=== PATIENT | male | born 1995 | race Caucasian/White ===

== ENCOUNTER 2022-09-24 09:19 | Outpatient (CLI) | payer BC, SELFPAY ==
[2022-09-24 09:57] LABS: Hemoglobin A1C* 5.3 % (0-5.6)
[2022-09-24 14:16] LABS: Albumin* 4.6 g/dL (3.3-5.0); Chloride* 107 mmol/L (96-114); Potassium* 4.4 mmol/L (3.6-5.1); Sodium* 141 mmol/L (135-149)
[2022-09-24 14:18] LABS: Carbon Dioxide* 26 mmol/L (20-32); Cholesterol* 159 mg/dL (90-199); Creatinine* 0.6 mg/dL (0.5-1.5); Estimated Glomerular Filt Rate 137 ml/min
[2022-09-24 14:19] LABS: Alanine Aminotransferase* 34 U/L (4-50); Alkaline Phosphatase* 90 U/L (40-150); Aspartate Amino Transferase* 29 U/L (12-35); Bilirubin Total* 0.7 mg/dL (0.1-1.5); Blood Urea Nitrogen* 10 mg/dL (5-24); Calcium* 9.5 mg/dL (8.4-10.6); Glucose* 90 mg/dL (60-115); Total Protein* 7.7 g/dL (6.0-8.3); Triglycerides* 44 mg/dL (40-149)
[2022-09-24 14:20] LABS: HDL Cholesterol* 53 mg/dL (>=40); LDL Cholesterol Calculated 97 mg/dL (<100)
[2022-09-24 14:34] LABS: Creatinine Urine 150.4 mg/dL
[2022-09-24 14:38] LABS: Microalbumin Creatinine Ratio 0 mg/g (0-30); Microalbumin Urine < 1 mg/dL
[2022-09-24 14:58] LABS: HIV 1/2/P24 Combo Screen* Negative (Negative)
[2022-09-24 18:49] LABS: Chlamydia DNA Amplified* NOT DETECTED (No Detected); GC DNA Amplified* NOT DETECTED (No Detected)
[2022-09-25 21:21] LABS: Hep A Ab, IgM Negative (Negative); Hep B Core Ab, IgM Negative (Negative); Hep B Surface Antigen Negative (Negative); Hep C Ab by CIA Index 0.05 IV; Hep C Ab by CIA Interp Negative (Negative)
[2022-09-26 01:35] LABS: Rapid Plasma Reagin (RPR) Non Reactive (Non Reactive)
== END 2022-09-24 09:20 | disposition home or self-care (01) ==
PROVIDERS: PCP Family Medicine; Visit Provider Family Medicine
DX: Z00.00 Encounter for general adult medical examination without abnormal findings (principal); I10 Essential (primary) hypertension; E66.01 Morbid (severe) obesity due to excess calories; Z13.6 Encounter for screening for cardiovascular disorders; Z11.3 Encounter for screening for infections with a predominantly sexual mode of transmission
CPT/HCPCS: 80053; 80061; 80074; 82043; 82570; 83036; 86592; 86703; 87491; 87591

== ENCOUNTER 2023-10-02 09:09 | Outpatient (CLI) | payer BC, SELFPAY | END 2023-10-02 09:10 | disposition home or self-care (01) | PROVIDERS: PCP Family Medicine; Visit Provider Family Medicine | DX: I15.8 Other secondary hypertension (principal); Z13.220 Encounter for screening for lipoid disorders; Z13.29 Encounter for screening for other suspected endocrine disorder; Z11.3 Encounter for screening for infections with a predominantly sexual mode of transmission | CPT/HCPCS: 80053; 80061; 80074; 82043; 82570; 84443; 86703; 87491; 87591 ==

== ENCOUNTER 2023-10-03 08:00 | Outpatient (CLI) | payer BC, SELFPAY | END 2023-10-03 08:01 | disposition home or self-care (01) | LOC: NFLDREF 10-07 11:58 | PROVIDERS: PCP Family Medicine; Referring Provider Family Medicine; Visit Provider Family Medicine | DX: Z11.3 Encounter for screening for infections with a predominantly sexual mode of transmission (principal) | CPT/HCPCS: 87491; 87591 ==

== ENCOUNTER 2024-01-06 09:04 | Outpatient (CLI) | payer BC, SELFPAY ==
[2024-01-06 15:25] LABS: Chlamydia DNA Amplified* NOT DETECTED (No Detected); GC DNA Amplified* NOT DETECTED (No Detected)
== END 2024-01-06 09:05 | disposition home or self-care (01) ==
LOC: FRMREF 09:05
PROVIDERS: PCP Family Medicine; Visit Provider Physician Assistant Medical
DX: Z11.3 Encounter for screening for infections with a predominantly sexual mode of transmission (principal)
CPT/HCPCS: 87491; 87591